=== PATIENT | female | born 1990 | race Caucasian/White ===

== ENCOUNTER 2017-06-06 20:48 | Emergency (ER) | payer BC, OTHER ==
[~2017-06-06] VITALS: Ht 160 cm; Wt 56.7 kg
[2017-06-06 22:39] VITALS: BP 135/78
--- NOTE | 2017-06-06 23:49 | Emergency Room Report ---
History of Present Illness General Chief Complaint: Substance Abuse Source: Patient, EMS Present Illness HPI Patient is a 26-year-old female presented after increased palpitations. The patient stated that she had recently ingested a marijuana gummy bear. She noted having palpitations. Patient denies any nausea or vomiting. She states that she otherwise feels well. She denied any other current complaints. Patient significant other was also transported with similar type symptoms. The patient had ingested just prior to arrival Allergies: Coded Allergies: No Known Allergies (Unverified , 06/06/17) Patient History Past Medical History: see triage record Last Menstrual Period: 2 days ago Now: No Reviewed Nursing Documentation: PMH: Agreed, PSxH: Agreed Nursing Documentation-PMH Past Medical History: No Stated History Review of Systems All Other Systems: negative except mentioned in HPI Physical Exam Vital Signs Date Time Temp Pulse Resp B/P (MAP) Pulse Ox O2 Delivery O2 Flow Rate FiO2 06/06/17 20:43 97.9 95 15 135/78 98 Room Air General Appearance: well appearing, no apparent distress, GCS 15 Head: normocephalic, atraumatic ENT: hearing grossly normal, normal voice Neck: full range of motion, supple Respiratory: lungs clear, no respiratory distress, speaking full sentences Cardiovascular #1: normal inspection Musculoskeletal: normal inspection, normal range of motion Neurologic: normal inspection, alert, oriented x3, responsive, business banking sales assistant III-XII nml as tested, motor strength/tone normal, normal gait Psychiatric: normal inspection, judgement/insight normal, mood/affect normal Skin: no rash Medical Decision Making Diagnostic Impression: Primary Impression: Substance abuse ER Course Patient presented for palpitations. The differential diagnosis included was not limited to arrhythmia, thyroid storm, sepsis, anemia, myocardial infarction , alcohol withdrawal, stimulant abuse, caffeine overdose among others. Patient's benign exam and does not appear to require any further imaging or laboratory testing at this time. The patient noted have a normal heart rate. She does not appear to have any toxic ingestion.The patient is advised to follow up with primary care doctor in 1-2 days. Patient is advised to return if any worsening condition or if any changes in status that are concerning. Last Vital Signs Date Time Temp Pulse Resp B/P (MAP) Pulse Ox O2 Delivery O2 Flow Rate FiO2 06/06/17 22:39 97.9 15 135/78 98 Room Air 06/06/17 20:43 95 Status: improved Disposition: HOME, SELF-CARE Condition: Stable Referrals: NOT CHOSEN IPA/MD,REFERRING (PCP) Patient Instructions: Cannabis Use Disorder Andrew Graf Jun 06, 2017 23:49
== END 2017-06-06 22:40 | disposition home or self-care (01) ==
LOC: EDBD 20:48 → EMR 21:16
DX: F12.10 Cannabis abuse, uncomplicated (principal)
CPT/HCPCS: 99282